=== PATIENT | male | born 1965 | race Caucasian/White ===

== ENCOUNTER 2017-11-01 17:55 | Emergency (ER) | payer MEDICAID ==
[~2017-11-01] VITALS: Ht 175.3 cm; Wt 77.2 kg
[~2017-11-01 17:55] MED LIST: FOLI1TAB16 PO; OMEP20TA23 PO
[2017-11-01] MEDS ORDERED: normal saline 1000ML IV soln IVB ONE ×4 (18:10→20:50)
[2017-11-01 19:30] LABS: URINE AMPHETAMINE SCREEN NEGATIVE (Neg); URINE BARBITUATE SCREEN NEGATIVE (Neg); URINE BENZODIAZEPINES SCREEN NEGATIVE (Neg); URINE CANNABINOID SCREEN NEGATIVE (Neg); URINE COCAINE SCREEN NEGATIVE (Neg); URINE METHADONE SCREEN NEGATIVE (Neg); URINE OPIATE SCREEN NEGATIVE (Neg); URINE PHENCYCLIDINE SCREEN NEGATIVE (Neg)
[2017-11-02 03:42] VITALS: BP 124/85
== END 2017-11-02 03:53 ==
LOC: ER 17:55
DX: Z02.89 Encounter for other administrative examinations (principal); F10.129 Alcohol abuse with intoxication, unspecified; I10 Essential (primary) hypertension; M79.7 Fibromyalgia
CPT/HCPCS: 36415; 80305; 80320; 96360; 96361; 99285; A4353; J7030

== ENCOUNTER 2017-12-24 13:28 | Emergency (ER) | payer MEDICAID, OTHER ==
[~2017-12-24] VITALS: Ht 185.4 cm; Wt 87.0 kg
[2017-12-24] MEDS ORDERED: ondansetron/PF 4mg/2ml inj IV ONE (14:25)
[2017-12-24] MEDS ORDERED: morphine 4 MG/ML inj SYRINge IV ONE (14:25)
[2017-12-24 14:52] LABS: BASOPHILS % (AUTO) 0.9 % (0-1); EOSINOPHILS # (AUTO) 0.8 X10'3 (0-0.9); EOSINOPHILS % (AUTO) 21.7 % (0-6); HEMATOCRIT 24.8 % (42.0-52.0); HEMOGLOBIN 8.7 g/dl (14.0-17.9); LYMPHOCYTES # (AUTO) 0.6 X10'3 (1.1-4.8); MEAN CORPUSCULAR HEMOGLOBIN 32.2 PG (27.0-31.0); MEAN CORPUSCULAR VOLUME 92.2 FL (78-98); MEAN PLATELET VOLUME 6.7 FL (7.4-10.4); MONOCYTES # (AUTO) 0.3 X10'3 (0-0.9); MONOCYTES % (AUTO) 7.5 % (2-12); NEUTROPHILS # (AUTO) 1.8 X10'3 (1.8-7.7); NEUTROPHILS % (AUTO) 51.9 % (42-75); RED BLOOD COUNT 2.69 X10'6 (4.70-6.10); RED CELL DISTRIBUTION WIDTH 18.2 % (11.5-14.5); WHITE BLOOD COUNT 3.6 X10'3 (4.5-11.0)
[2017-12-24 15:01] LABS: INR 1.6 INR; PARTIAL THROMBOPLASTIN TIME 30 SECONDS (22-32)
[2017-12-24 15:04] LABS: PLATELET COUNT 48 X10'3 (140-440)
[2017-12-24 15:05] LABS: ALANINE AMINOTRANSFERASE 25 U/L (12-78); ALBUMIN 2.6 G/DL (3.4-5.0); ALBUMIN/GLOBULIN RATIO 0.6 (1.1-1.5); ALKALINE PHOSPHATASE 72 IU/L (46-116); ANION GAP 8 (8-16); ASPARTATE AMINO TRANSFERASE 41 U/L (10-37); BILIRUBIN,TOTAL 2.2 MG/DL (0.1-1.0); BLOOD UREA NITROGEN 7 MG/DL (7-18); BUN/CREATININE RATIO 9.6 (5.4-32.0); CALCIUM 8.3 MG/DL (8.5-10.1); CHLORIDE 106 MMOL/L (99-107); CREATININE 0.73 MG/DL (0.60-1.10); GLUCOSE 117 MG/DL (70-104); POTASSIUM 3.4 MMOL/L (3.5-5.1); SODIUM 142 MMOL/L (135-145); TOTAL CARBON DIOXIDE 28.3 MMOL/L (24-32); TOTAL PROTEIN 7.3 G/DL (6.4-8.2); eGFR > 90 ML/MIN
[2017-12-24 15:46] LABS: CLARITY,URINE Clear (Clear); COLOR,URINE Yellow (Yellow); GLUCOSE, URINE Negative (Neg); KETONES,URINE Negative (Neg); LEUKOCYTE ESTERASE ,URINE Negative (Neg); NITRITES, URINE Negative (Neg); OCCULT BLOOD,URINE Negative (Neg); PROTEIN,URINE Negative (Neg)
[2017-12-24 15:48] LABS: UA COLLECTION TYPE VOIDED
[2017-12-24] MEDS ORDERED: DIPH25CA83 PO (16:56)
[2017-12-24 17:01] VITALS: BP 129/76
== END 2017-12-24 17:03 ==
LOC: ER 13:28
DX: K80.20 Calculus of gallbladder without cholecystitis without obstruction (principal); K40.90 Unilateral inguinal hernia, without obstruction or gangrene, not specified as recurrent; N32.89 Other specified disorders of bladder; I10 Essential (primary) hypertension; Z86.19 Personal history of other infectious and parasitic diseases; Z79.899 Other long term (current) drug therapy
CPT/HCPCS: 36415; 74176; 76870; 80053; 81003; 85025; 85610; 85730; 96374; 96375; 99285; J2270; J2405

== ENCOUNTER → 2018-01-28 | Emergency (ER) | payer OTHER ==
[~2018-01-28] VITALS: Ht 180.3 cm; Wt 88.6 kg
[~2018-01-28] MED LIST changes: +AMOX-422 PO; +DIPH25CA83 PO; +oxymetazoline 15 ML nasal spray NS ONE; +tranexamic acid 100mg/ml inj. TP ONE
[2018-01-28 14:39] VITALS: BP 111/69
== END ==
LOC: EEVIPCON 13:26 → ER 13:26
DX: R04.0 Epistaxis (principal); I10 Essential (primary) hypertension; M10.9 Gout, unspecified; Z79.899 Other long term (current) drug therapy
CPT/HCPCS: 30901; 99284

== ENCOUNTER 2018-02-10 09:43 | Inpatient (IN) | payer OTHER ==
[~2018-02-10] VITALS: Ht 185.4 cm; Wt 120.0 kg
[2018-02-10] VITALS (11 sets, daily range): BP systolic 120–149; BP diastolic 66–89
[~2018-02-10 09:43] MED LIST changes: -AMOX-422 PO; -oxymetazoline 15 ML nasal spray NS ONE; -tranexamic acid 100mg/ml inj. TP ONE
[2018-02-10 11:11] LABS: BASOPHILS % (AUTO) 0.6 % (0-1); EOSINOPHILS # (AUTO) 0.5 X10'3 (0-0.9); EOSINOPHILS % (AUTO) 15.4 % (0-6); LYMPHOCYTES # (AUTO) 0.7 X10'3 (1.1-4.8); LYMPHOCYTES % (AUTO) 18.8 % (21-51); MEAN CORPUSCULAR HEMOGLOBIN 32.3 PG (27.0-31.0); MEAN CORPUSCULAR HGB CONC 33.8 % (33.0-36.5); MEAN CORPUSCULAR VOLUME 95.7 FL (78-98); MONOCYTES # (AUTO) 0.3 X10'3 (0-0.9); MONOCYTES % (AUTO) 9.1 % (2-12); NEUTROPHILS # (AUTO) 1.9 X10'3 (1.8-7.7); NEUTROPHILS % (AUTO) 56.1 % (42-75); PLATELET COUNT 71 X10'3 (140-440); RED BLOOD COUNT 2.13 X10'6 (4.70-6.10); RED CELL DISTRIBUTION WIDTH 17.6 % (11.5-14.5); WHITE BLOOD COUNT 3.5 X10'3 (4.5-11.0)
[2018-02-10 11:21] LABS: ALANINE AMINOTRANSFERASE 18 U/L (12-78); ALBUMIN 2.5 G/DL (3.4-5.0); ALBUMIN/GLOBULIN RATIO 0.5 (1.1-1.5); ALKALINE PHOSPHATASE 78 IU/L (46-116); ANION GAP 6 (8-16); ASPARTATE AMINO TRANSFERASE 40 U/L (10-37); BILIRUBIN,TOTAL 1.6 MG/DL (0.1-1.0); BLOOD UREA NITROGEN 6 MG/DL (7-18); CALCIUM 8.3 MG/DL (8.5-10.1); CHLORIDE 106 MMOL/L (99-107); CREATININE 0.75 MG/DL (0.60-1.10); GLUCOSE 105 MG/DL (70-104); POTASSIUM 3.8 MMOL/L (3.5-5.1); SODIUM 140 MMOL/L (135-145); TOTAL CARBON DIOXIDE 27.9 MMOL/L (24-32); TOTAL PROTEIN 7.2 G/DL (6.4-8.2); eGFR > 90 ML/MIN
[2018-02-10 11:23] LABS: HEMOGLOBIN 6.9 g/dl (14.0-17.9)
[2018-02-10 11:24] LABS: HEMATOCRIT 20.4 % (42.0-52.0)
[2018-02-10 12:04] LABS: CLARITY,URINE CLEAR (Clear); COLOR,URINE YELLOW (Yellow); GLUCOSE, URINE NEGATIVE (Neg); KETONES,URINE NEGATIVE (Neg); LEUKOCYTE ESTERASE ,URINE NEGATIVE (Neg); NITRITES, URINE NEGATIVE (Neg); OCCULT BLOOD,URINE TRACE-INTACT (Neg); PROTEIN,URINE NEGATIVE (Neg)
[2018-02-10 12:09] LABS: UA COLLECTION TYPE CLN CATCH MIDSTREAM
[2018-02-10 12:10] LABS: BACTERIA,URINE NONE SEEN /HPF (Neg); MUCUS STRANDS NONE SEEN /LPF (Neg); RBC,URINE 0-2 /HPF (0-2); SQUAMOUS EPITHELIAL CELL,UR FEW /LPF (FEW); WBC,URINE 0-4 /HPF (0-4)
[2018-02-10 12:15] LABS: URINE AMPHETAMINE SCREEN NEGATIVE (Neg); URINE BARBITUATE SCREEN NEGATIVE (Neg); URINE BENZODIAZEPINES SCREEN NEGATIVE (Neg); URINE CANNABINOID SCREEN NEGATIVE (Neg); URINE COCAINE SCREEN NEGATIVE (Neg); URINE METHADONE SCREEN NEGATIVE (Neg); URINE OPIATE SCREEN NEGATIVE (Neg); URINE PHENCYCLIDINE SCREEN NEGATIVE (Neg)
[2018-02-10] MEDS ORDERED: magnesium 2GM in 50ml NS 50 ML IV PRN (12:30)
[2018-02-10] MEDS ORDERED: magnesium hydroxide 30ml (MOM) UD suspension PO PRN (12:30)
[2018-02-10] MEDS ORDERED: magnesium Cl slow-release 64mg tablet PO PRN (12:30)
[2018-02-10] MEDS ORDERED: acetaminophen 325mg tablet PO PRN (12:30)
[2018-02-10] MEDS ORDERED: potassium Cl 40MEQ/NS 500ml 500 ML IV PRN ×2 (12:30)
[2018-02-10] MEDS ORDERED: ondansetron/PF 4mg/2ml inj IV PRN (12:30)
[2018-02-10] MEDS ORDERED: mag hydrox/Alum hydrox/simeth 30ml oral suspension PO PRN (12:30)
[2018-02-10] MEDS ORDERED: potassium Cl 20 mEq SR tablet PO PRN ×2 (12:30)
[2018-02-10] MEDS ORDERED: magnesium 4gm in 100ml NS 100 ML IV PRN (12:30)
[2018-02-10] MEDS ORDERED: MULT1TAB74 PO (13:35)
[2018-02-10] MEDS ORDERED: FERR325T39 PO (13:35)
[2018-02-10] MEDS ORDERED: MELA3TAB PO (13:35)
[2018-02-10 13:51] LABS: RED BLOOD COUNT 2.11 X10'6 (4.70-6.10); RETICULOCYTE % (AUTO) 5.5 % (0.5-1.5)
[2018-02-10 14:24] LABS: HIV ANTIBODY 1&2 RAPID NON-REACTIVE (Neg)
[2018-02-10] MEDS ORDERED: iohexol 300mg/ml 100ml inj. ONE (15:23)
[2018-02-10] MEDS: traMADol 50MG tablet PO SCH (15:58)
[2018-02-10 17:49] LABS: ANISOCYTOSIS 2+; PLATELET ESTIMATE DECREASED; TOTAL CELLS COUNTED 100
[2018-02-10 17:50] LABS: POLYCHROMASIA FEW
[2018-02-10] MEDS ORDERED: temazepam 15mg capsule PO PRN (21:00)
[2018-02-11] VITALS (16 sets, daily range): BP systolic 98–146; BP diastolic 65–89
[2018-02-11] MEDS: traMADol 50MG tablet PO SCH ×3 (00:42→16:44)
[2018-02-11 07:29] LABS: BASOPHILS % (AUTO) 0.6 % (0-1); EOSINOPHILS # (AUTO) 0.6 X10'3 (0-0.9); EOSINOPHILS % (AUTO) 14.4 % (0-6); HEMATOCRIT 23.6 % (42.0-52.0); HEMOGLOBIN 8.1 g/dl (14.0-17.9); LYMPHOCYTES # (AUTO) 0.7 X10'3 (1.1-4.8); LYMPHOCYTES % (AUTO) 19.3 % (21-51); MEAN CORPUSCULAR HEMOGLOBIN 32.1 PG (27.0-31.0); MEAN CORPUSCULAR HGB CONC 34.5 % (33.0-36.5); MEAN PLATELET VOLUME 7.2 FL (7.4-10.4); MONOCYTES # (AUTO) 0.3 X10'3 (0-0.9); MONOCYTES % (AUTO) 7.4 % (2-12); NEUTROPHILS # (AUTO) 2.3 X10'3 (1.8-7.7); NEUTROPHILS % (AUTO) 58.3 % (42-75); PLATELET COUNT 64 X10'3 (140-440); RED BLOOD COUNT 2.54 X10'6 (4.70-6.10); RED CELL DISTRIBUTION WIDTH 17.9 % (11.5-14.5); WHITE BLOOD COUNT 3.9 X10'3 (4.5-11.0)
[2018-02-11] MEDS ORDERED: pantoprazole 40mg Tablet.DR PO SCH (07:30)
[2018-02-11 07:46] LABS: ANISOCYTOSIS 2+; PLATELET ESTIMATE DECREASED; POLYCHROMASIA 1+; ROULEAUX 1+
[2018-02-11] MEDS: folic acid 1mg tablet PO SCH (07:56)
[2018-02-11] MEDS: K and/or MAG REPLACEMENT MC SCH (08:00)
[2018-02-11 08:19] LABS: ALANINE AMINOTRANSFERASE 18 U/L (12-78); ALBUMIN 2.4 G/DL (3.4-5.0); ALBUMIN/GLOBULIN RATIO 0.5 (1.1-1.5); ALKALINE PHOSPHATASE 66 IU/L (46-116); ANION GAP 9 (8-16); ASPARTATE AMINO TRANSFERASE 40 U/L (10-37); BILIRUBIN,TOTAL 3.1 MG/DL (0.1-1.0); BLOOD UREA NITROGEN 9 MG/DL (7-18); CALCIUM 8.2 MG/DL (8.5-10.1); CHLORIDE 108 MMOL/L (99-107); CREATININE 0.69 MG/DL (0.60-1.10); GLUCOSE 80 MG/DL (70-104); MAGNESIUM 1.4 MG/DL (1.5-2.4); POTASSIUM 3.7 MMOL/L (3.5-5.1); SODIUM 140 MMOL/L (135-145); TOTAL CARBON DIOXIDE 23.3 MMOL/L (24-32); TOTAL PROTEIN 6.8 G/DL (6.4-8.2); eGFR > 90 ML/MIN
[2018-02-11] MEDS ORDERED: fentaNYL/PF 50MCG/1 ML 2ML syringe IV PRN (13:00)
[2018-02-11] MEDS: methyl salicylate/menthol cream 85gm TP SCH ×2 (13:00→20:43)
[2018-02-11] MEDS ORDERED: LIDOcaine Viscous 15ml cup PO ONE (13:00)
[2018-02-11] MEDS ORDERED: simethicone 40mg/0.6ml oral drops 30ml MC ONE (13:00)
[2018-02-11] MEDS ORDERED: MIDAZolam 5mg/5ml vial IV PRN (13:00)
[2018-02-11] MEDS ORDERED: fentaNYL/PF 50MCG/1 ML 2ML syringe ONE (13:06)
[2018-02-11] MEDS ORDERED: MIDAZolam 5mg/5ml vial ONE (13:06)
[2018-02-11] MEDS ORDERED: LIDOcaine Viscous 15ml cup ONE (13:06)
[2018-02-11] MEDS ORDERED: levoFLOXACIN-Levaquin 500mg/D5 100 ML IV ONE (13:29)
[2018-02-11] MEDS ORDERED: octreotide 100mcg/1 ml ampule IV ONE (15:10)
[2018-02-11] MEDS: OCTREOTIDE 1,250 MCG in NS 250ml IV.SOLN IV SCH (15:57)
[2018-02-11 16:35] LABS: BASOPHILS % (AUTO) 0.7 % (0-1); EOSINOPHILS # (AUTO) 0.5 X10'3 (0-0.9); EOSINOPHILS % (AUTO) 14.5 % (0-6); HEMATOCRIT 24.1 % (42.0-52.0); HEMOGLOBIN 8.2 g/dl (14.0-17.9); LYMPHOCYTES # (AUTO) 0.7 X10'3 (1.1-4.8); LYMPHOCYTES % (AUTO) 19.5 % (21-51); MEAN CORPUSCULAR HEMOGLOBIN 31.3 PG (27.0-31.0); MEAN CORPUSCULAR HGB CONC 34.1 % (33.0-36.5); MEAN CORPUSCULAR VOLUME 91.9 FL (78-98); MEAN PLATELET VOLUME 6.9 FL (7.4-10.4); MONOCYTES # (AUTO) 0.3 X10'3 (0-0.9); MONOCYTES % (AUTO) 8.3 % (2-12); NEUTROPHILS # (AUTO) 1.9 X10'3 (1.8-7.7); PLATELET COUNT 62 X10'3 (140-440); RED BLOOD COUNT 2.62 X10'6 (4.70-6.10); RED CELL DISTRIBUTION WIDTH 18.1 % (11.5-14.5); WHITE BLOOD COUNT 3.4 X10'3 (4.5-11.0)
[2018-02-11] MEDS: pantoprazole 40mg Tablet.DR PO SCH (16:44)
[2018-02-11] MEDS: benzocaine/menthol oral lozeng 1 EACH BOX MM PRN (16:45)
[2018-02-12] MEDS: traMADol 50MG tablet PO SCH ×2 (01:17→07:22)
[2018-02-12 06:30] VITALS: BP 134/82
[2018-02-12] MEDS: folic acid 1mg tablet PO SCH (07:22)
[2018-02-12] MEDS: pantoprazole 40mg Tablet.DR PO SCH ×2 (07:22→17:10)
[2018-02-12] MEDS: methyl salicylate/menthol cream 85gm TP SCH ×3 (07:23→21:12)
[2018-02-12 07:27] LABS: HEMATOCRIT 24.2 % (42.0-52.0); HEMOGLOBIN 8.4 g/dl (14.0-17.9); MEAN CORPUSCULAR HEMOGLOBIN 32.3 PG (27.0-31.0); MEAN CORPUSCULAR HGB CONC 34.8 % (33.0-36.5); MEAN CORPUSCULAR VOLUME 92.8 FL (78-98); MEAN PLATELET VOLUME 6.7 FL (7.4-10.4); PLATELET COUNT 56 X10'3 (140-440); RED BLOOD COUNT 2.61 X10'6 (4.70-6.10); RED CELL DISTRIBUTION WIDTH 17.4 % (11.5-14.5); WHITE BLOOD COUNT 2.8 X10'3 (4.5-11.0)
[2018-02-12 07:46] LABS: ANISOCYTOSIS 1+; NUCLEATED RED BLOOD CELLS 1 /100WBC (0-0); PLATELET ESTIMATE DECREASED; TOTAL CELLS COUNTED 100
[2018-02-12 07:47] LABS: POIKILOCYTOSIS FEW; POLYCHROMASIA 1+
[2018-02-12 07:51] LABS: ALANINE AMINOTRANSFERASE 20 U/L (12-78); ALBUMIN 2.4 G/DL (3.4-5.0); ALBUMIN/GLOBULIN RATIO 0.5 (1.1-1.5); ALKALINE PHOSPHATASE 68 IU/L (46-116); ANION GAP 8 (8-16); ASPARTATE AMINO TRANSFERASE 44 U/L (10-37); BILIRUBIN,TOTAL 3.3 MG/DL (0.1-1.0); BLOOD UREA NITROGEN 7 MG/DL (7-18); BUN/CREATININE RATIO 9.3 (5.4-32.0); CALCIUM 8.3 MG/DL (8.5-10.1); CHLORIDE 106 MMOL/L (99-107); CREATININE 0.75 MG/DL (0.60-1.10); GLUCOSE 99 MG/DL (70-104); MAGNESIUM 1.5 MG/DL (1.5-2.4); SODIUM 138 MMOL/L (135-145); TOTAL CARBON DIOXIDE 24.4 MMOL/L (24-32); eGFR > 90 ML/MIN
[2018-02-12] MEDS: K and/or MAG REPLACEMENT MC SCH (08:00)
[2018-02-12] MEDS: benzocaine/menthol oral lozeng 1 EACH BOX MM PRN (08:50)
[2018-02-12 10:34] LABS: INR 1.6 INR
[2018-02-12 11:00] VITALS: BP 116/79
[2018-02-12] MEDS: traMADol 50MG tablet PO PRN ×2 (12:58→21:14)
[2018-02-12 13:09] LABS: HEP B CORE AB, IGM Negative (Negative); HEPATITIS C ANTIBODY <0.1 s/co ratio (0.0-0.9)
[2018-02-12 15:00] VITALS: BP 124/84
[2018-02-12] MEDS: OCTREOTIDE 1,250 MCG in NS 250ml IV.SOLN IV SCH (16:10)
[2018-02-12 17:00] LABS: BASOPHILS % (AUTO) 0.3 % (0-1); EOSINOPHILS # (AUTO) 0.3 X10'3 (0-0.9); EOSINOPHILS % (AUTO) 10.1 % (0-6); HEMATOCRIT 24.2 % (42.0-52.0); HEMOGLOBIN 8.5 g/dl (14.0-17.9); LYMPHOCYTES # (AUTO) 0.6 X10'3 (1.1-4.8); LYMPHOCYTES % (AUTO) 19.1 % (21-51); MEAN CORPUSCULAR HEMOGLOBIN 32.1 PG (27.0-31.0); MEAN CORPUSCULAR HGB CONC 35.1 % (33.0-36.5); MEAN CORPUSCULAR VOLUME 91.5 FL (78-98); MEAN PLATELET VOLUME 6.9 FL (7.4-10.4); MONOCYTES # (AUTO) 0.2 X10'3 (0-0.9); MONOCYTES % (AUTO) 7.8 % (2-12); NEUTROPHILS % (AUTO) 62.7 % (42-75); PLATELET COUNT 60 X10'3 (140-440); RED BLOOD COUNT 2.65 X10'6 (4.70-6.10); RED CELL DISTRIBUTION WIDTH 17.5 % (11.5-14.5); WHITE BLOOD COUNT 3.2 X10'3 (4.5-11.0)
[2018-02-12 18:00] VITALS: BP 126/87
[2018-02-12 20:00] VITALS: BP 100/58
[2018-02-12 22:00] VITALS: BP 100/58
[2018-02-13 02:00] VITALS: BP 115/58
[2018-02-13 05:34] LABS: BASOPHILS % (AUTO) 0.3 % (0-1); EOSINOPHILS # (AUTO) 0.4 X10'3 (0-0.9); EOSINOPHILS % (AUTO) 11.1 % (0-6); HEMATOCRIT 24.1 % (42.0-52.0); HEMOGLOBIN 8.5 g/dl (14.0-17.9); LYMPHOCYTES # (AUTO) 0.7 X10'3 (1.1-4.8); LYMPHOCYTES % (AUTO) 20.6 % (21-51); MEAN CORPUSCULAR HEMOGLOBIN 32.4 PG (27.0-31.0); MEAN CORPUSCULAR HGB CONC 35.1 % (33.0-36.5); MEAN CORPUSCULAR VOLUME 92.2 FL (78-98); MONOCYTES # (AUTO) 0.3 X10'3 (0-0.9); MONOCYTES % (AUTO) 9.2 % (2-12); NEUTROPHILS # (AUTO) 1.9 X10'3 (1.8-7.7); NEUTROPHILS % (AUTO) 58.8 % (42-75); PLATELET COUNT 56 X10'3 (140-440); RED BLOOD COUNT 2.62 X10'6 (4.70-6.10); RED CELL DISTRIBUTION WIDTH 17.2 % (11.5-14.5); WHITE BLOOD COUNT 3.2 X10'3 (4.5-11.0)
[2018-02-13 06:00] VITALS: BP 108/62
[2018-02-13 06:21] LABS: ALANINE AMINOTRANSFERASE 12 U/L (12-78); ALBUMIN 2.4 G/DL (3.4-5.0); ALBUMIN/GLOBULIN RATIO 0.5 (1.1-1.5); ALKALINE PHOSPHATASE 70 IU/L (46-116); ANION GAP 10 (8-16); ASPARTATE AMINO TRANSFERASE 42 U/L (10-37); BILIRUBIN,TOTAL 3.2 MG/DL (0.1-1.0); BLOOD UREA NITROGEN 8 MG/DL (7-18); CALCIUM 8.3 MG/DL (8.5-10.1); CHLORIDE 104 MMOL/L (99-107); GLUCOSE 87 MG/DL (70-104); MAGNESIUM 1.5 MG/DL (1.5-2.4); POTASSIUM 3.5 MMOL/L (3.5-5.1); SODIUM 138 MMOL/L (135-145); TOTAL CARBON DIOXIDE 24.2 MMOL/L (24-32); eGFR > 90 ML/MIN
[2018-02-13] MEDS: K and/or MAG REPLACEMENT MC SCH (06:43)
[2018-02-13] MEDS: pantoprazole 40mg Tablet.DR PO SCH (07:13)
[2018-02-13] MEDS: folic acid 1mg tablet PO SCH (07:13)
[2018-02-13] MEDS: methyl salicylate/menthol cream 85gm TP SCH ×2 (07:14→14:34)
[2018-02-13 10:00] VITALS: BP 124/80
[2018-02-13] MEDS ORDERED: FURO-150 PO (14:33)
[2018-02-13] MEDS ORDERED: SPIR25TA3 PO (14:33)
[2018-02-13] MEDS ORDERED: TRAZ-143 PO (14:33)
[2018-02-13] MEDS ORDERED: PROP10TA10 PO (14:33)
[2018-02-13] MEDS ORDERED: PANT40TA4 PO (14:33)
[2018-02-16 10:46] LABS: OCCULT BLOOD STOOL NEGATIVE (Neg)
== END 2018-02-13 15:30 | DRG 369 ==
LOC: ER 09:44 → EEVIPCON 09:44 → ED HOLD 12:30 → EDBEDREQ 14:00 → PCU 3S 15:20
PROVIDERS: ADMIT Internal Medicine; ATTEND Internal Medicine
PROC: 30233N1 Transfusion of Nonautologous Red Blood Cells into Peripheral Vein, Percutaneous Approach (ICD-10-PCS; 2018-02-10)
PROC: 0DB68ZX Excision of Stomach, Via Natural or Artificial Opening Endoscopic, Diagnostic (ICD-10-PCS; principal; 2018-02-11)
DX: I85.00 Esophageal varices without bleeding (principal); D61.818 Other pancytopenia; K76.6 Portal hypertension; B18.1 Chronic viral hepatitis B without delta-agent; K70.31 Alcoholic cirrhosis of liver with ascites; I10 Essential (primary) hypertension; M10.9 Gout, unspecified; I35.0 Nonrheumatic aortic (valve) stenosis; B19.20 Unspecified viral hepatitis C without hepatic coma; G47.00 Insomnia, unspecified; R14.0 Abdominal distension (gaseous); K40.90 Unilateral inguinal hernia, without obstruction or gangrene, not specified as recurrent; K72.90 Hepatic failure, unspecified without coma; M79.7 Fibromyalgia; Z66 Do not resuscitate; Z79.899 Other long term (current) drug therapy; Z82.3 Family history of stroke; Z82.49 Family history of ischemic heart disease and other diseases of the circulatory system
CPT/HCPCS: 36415; 43239; 43244; 71045; 74177; 80053; 80305; 81001; 82272; 83735; 85007; 85025; 85045; 85610; 86703; 86705; 86803; 86885; 86900; 86901; 86920; 87070; 93005; 93306; 99285; A4620; G0500; J1956; J2250; J2354; J3010; J7030; P9016; Q9967